=== PATIENT | male | born 1985 | race Caucasian/White ===

== ENCOUNTER 2020-11-15 16:26 | Emergency (ER) | payer BC ==
[2020-11-15 16:39] VITALS: BP 123/72; PULSE 75; TEMP 98.3; BMI 26.6
[2020-11-15] MEDS ORDERED: PSEUDOEPHEDRINE HCL 60 MG TABLET ONE (17:08)
[2020-11-15] MEDS ORDERED: PSEUDOEPHEDRINE HCL 60 MG TABLET PO ONE (17:09)
== END 2020-11-15 17:18 | disposition home or self-care (01) ==
LOC: JER 16:26
DX: J06.9 Acute upper respiratory infection, unspecified (principal); Z11.52 Encounter for screening for COVID-19
CPT/HCPCS: 99284-25